=== PATIENT | female | born 1990 | race Caucasian/White ===

== ENCOUNTER 2025-02-02 00:30 | Emergency (ER) | payer SELFPAY ==
[2025-02-02 00:35] VITALS: BP 174/117
[2025-02-02 01:56] VITALS: BP 148/95
--- NOTE | 2025-02-02 02:30 | EDRN ---
pt walked out into hallway and questioned if she was going to be seen. informed pt that Dr Olivo is in her chart and will be in shortly. pt c/o fluids that are on the floor of her room, stating that she 'should've just stayed home.' assured pt that
she would been shortly. pt walked back into her room
[2025-02-02] MEDS: LOPRESSOR 25 MG PO (02:55)
--- NOTE | 2025-02-02 02:59 | ED.GENMED ---
History of Present Illness
General
Chief Complaint: Headache
Source: patient
Exam Limitations: none
Time Seen by Provider: 02/02/25 02:14
Nursing documentation reviewed up to this point in time: agreed with
History of Present Illness
History of Present Illness:
34-year-old female limited past medical history presents with headache numbness of the right thumb and index finger and right foot no slurred speech, no visual changes no arm or leg weakness, she is concerned because her blood pressure has been
running high over the past week or so and her mother had a stroke at age 60 nondrinker non-smoker not known to be diabetic not known to be hypertensive
Past History
Past History
ED Past Medical History: None
ED Past Surgical History: None
Social History
Tobacco: Non-smoker
Alcohol: None
Drug: None
Personal:
Living: with family
Employment: Employed
Family History
Family History: Other (Mother with a stroke due to high blood)
Review of Systems
Review of Systems
All Other Systems: Not applicable
EENT: Reports no symptoms
Respiratory: Reports no symptoms
ABD/GI: Reports no symptoms
: Reports no symptoms
Skin: Reports no symptoms
Neurological: Reports headache and numbness; Denies weakness
Psychiatric: Reports no symptoms
Phy Exam
Physical Exam
Physical Exam:
Physical Exam
General: no apparent distress, not acutely ill
Neck: No jaundice
Heart: s1/s2 regular rate and rhythm, no murmur. equal radial pulses.
Lungs: no acute respiratory distress. clear bilaterally
Abdomen: Nontender
Neuro: alert and oriented. Muscle strength 5 out of 5 upper and lower no facial palsy, normal [id number], clear speech
Skin: no rash
Psychiatric: well kept. interactive and cooperative
Extremities: no edema.
Course
Orders/Labs/Results
Orders:
Orders
02/02/25 00:[address] [CT Head W/o Iv Contrast] Urgent
Comment:
Reason For Exam: headache x 1 wk, htn, numbness inner aspect r foot
02/02/25 02:42
Electrocardiogram (*1) Urgent
Reason for Study: TIA/Stroke
EKG- Treatment ONCE
Metoprolol [Lopressor] 25 mg PO NOW STA
Vital Signs
Initial and Last Documented VS:
Initial Vital Signs
Temp Pulse Resp BP Pulse Ox
98.3 F 75 18 174/117 100
02/02/25 00:35 02/02/25 00:35 02/02/25 00:35 02/02/25 00:35 02/02/25 00:35
Last Documented Vital Signs
Temp Pulse Resp BP Pulse Ox
98.3 F 71 16 138/82 100
02/02/25 00:35 02/02/25 01:56 02/02/25 01:56 02/02/25 03:30 02/02/25 01:56
MDM/Problems Addressed
Differential Diagnosis Includes:
Hypertensive urgency TIA, peripheral neuropathy, mass CVA
MDM/Problems Addressed:
Headache numbness tingling
*Radiology
Radiology exam reviewed: radiology read reviewed
*Pulse Oximetry
Patient hypoxic: no
*EKG
Interpreted by ED Provider?: Yes
Interpretation: normal
Comparison EKG: no comparison EKG present
Heart Rate: 78
Rate: normal
QRS Pattern: normal QRS
Ischemia: no ischemia
*Medical Sales Representative Interpretation
Rate: normal
Interpretation: normal
Heart Rate: 78
*Critical Care Note
Total Time (30-74mins, 75-104mins- exclusive of procedures): Not Applicable
Update Note
Update Note:
Update patient understandably concerned about her high blood pressure for the family history, has a nonfocal neurologic exam. Does have some subjective numbness and tingling, noncontrast CT is noted, she did take aspirin and Motrin earlier today
will continue aspirin at home we will get her on some blood pressure meds encourage PCP follow-up ER if worsening symptoms
3:40 AM patient feeling better
ED Attending Note
-
Portions of this chart may have been created with voice recognition software.� Occasional wrong word or��sound alike� substitutions may have occurred due to the inherent limitations of voice recognition software.
Discharge Plan
Departure
Patient Disposition: Home (Routine Discharge)
Date of Disposition: 02/02/25
Time of Disposition: 03:40
Patient with high blood pressure during this ER visit?: Yes
Condition: Good
Discharge Problem:
Hypertension
Instructions: BLOOD PRESSURE
Prescriptions:
New
metoprolol succinate [Toprol XL] 25 mg tablet extended release 24 hr
25 mg PO DAILY Qty: 30 0RF
aspirin [Aspirin Childrens] 81 mg tablet,chewable
81 mg PO DAILY Qty: 30 0RF
Activity Restrictions/Additional Instructions:
Follow-up with your primary care provider, take your blood pressure daily, keep a log of it to discuss with your primary care provider
Return to the ER if worsening or recurrent symptoms
Interventions
Interventions:
*Risk Screen - Suicide Last Done: 02/02/25 00:35
*General Assessment Last Done: 02/02/25 03:13
*Neglect/Abuse Screening Last Done: 02/02/25 02:39
*ED- Fall Risk Assessment Last Done: 02/02/25 02:39
*ED COVID-19 Vaccine History Last Done: 02/02/25 02:39
ED- Neurological Assessment Last Done: 02/02/25 03:13
Discharge Date and Time
Print Language: RWANDAN
[2025-02-02 03:00] VITALS: BP 138/99
[2025-02-02 03:30] VITALS: BP 138/82
== END 2025-02-02 04:06 | disposition home or self-care (01) ==
LOC: EMR 00:30
PROVIDERS: EMERGENCY PHYSICIAN Emergency Medicine; FAMILY PHYSICIAN Family Medicine
DX: I10 Essential (primary) hypertension (principal); R51.9 Headache, unspecified; R20.0 Anesthesia of skin; Z88.5 Allergy status to narcotic agent
CPT/HCPCS: 99284; 70450; 93005